=== PATIENT | female | born 1960 | race Two or more races ===

== ENCOUNTER 2018-03-15 16:18 | Emergency (ER) | payer BC ==
[~2018-03-15] VITALS: Ht 182.9 cm; Wt 130.6 kg
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
[2018-03-15] MEDS ORDERED: ACETAMINOPHEN ES 500 MG TABLET ONE (16:41)
[2018-03-15] MEDS: IV NS 0.9% 1,000 ML BAG IV ONE ×2 (16:55→17:11)
[2018-03-15] MEDS ORDERED: ACETAMINOPHEN 325 MG TABLET PO ONE (17:00)
[2018-03-15 17:09] LABS: ALBUMIN 3.8 g/dL (3.4-5.0); BILIRUBIN,TOTAL 0.3 mg/dL (0.2-1.0); CALCIUM, SERUM 8.9 mg/dL (8.5-10.1); CREATININE 0.9 mg/dL (0.6-1.3); POTASSIUM 4.5 mmol/L (3.5-5.1); TOTAL PROTEIN, SERUM 8.3 g/dL (6.4-8.2)
--- NOTE | 2018-03-15 17:11 | NUR ---
PT IS ALLERGIC TO IODINE, MADE MARTY SERVIN AWARE. WILL DO CT SCAN WITHOUT CONTRAST. IV FLUID NS 1000ML CANCELLED.
--- NOTE | 2018-03-15 17:13 | NUR ---
PT TO CTSCAN
[2018-03-15 18:02] LABS: BASOPHILS # (AUTO) 0.1 /CMM (0.0-0.2); BASOPHILS % (AUTO) 0.7 % (0.0-2.0); EOSINOPHILS % (AUTO) 2.1 % (0.0-6.0); HEMATOCRIT 39 % (33-45); HEMOGLOBIN 13.3 g/dL (11.5-14.8); LYMPHOCYTES # (AUTO) 4.1 /CMM (0.8-4.8); LYMPHOCYTES % (AUTO) 48.4 % (20.0-44.0); MEAN CORPUSCULAR HGB CONC 34 g/dl (31.0-36.0); MEAN CORPUSCULAR VOLUME 89 fL (82-100); MONOCYTES # (AUTO) 0.7 /CMM (0.1-1.30); MONOCYTES % (AUTO) 8.2 % (2.0-12.0); NEUTROPHILS # (AUTO) 3.4 /CMM (1.8-8.9); NEUTROPHILS % (AUTO) 40.6 % (43.0-81.0); PLATELET COUNT (AUTO) 360 /CMM (150-450); RDW COEFFICIENT OF VARIATION 13.5 (11.5-15.0); RED BLOOD CELL COUNT(AUTO) 4.37 MIL/uL (4.0-5.2); WHITE BLOOD COUNT (AUTO) 8.4 K/uL (4.3-11.0)
[2018-03-15 19:09] VITALS: BP 132/80
--- NOTE | 2018-03-15 19:10 | NUR ---
Patient discharged to home in stable condition. Written and verbal after care instructions given. Patient verbalizes understanding of instruction.IV removed. Catheter intact and site benign. Pressure and 4x4 applied to site. No bleeding noted. Prescription given.
== END 2018-03-15 19:11 | disposition home or self-care (01) ==
LOC: ER 16:48
DX: S30.1XXA Contusion of abdominal wall, initial encounter (principal); S20.212A Contusion of left front wall of thorax, initial encounter; S20.211A Contusion of right front wall of thorax, initial encounter; I10 Essential (primary) hypertension; E11.9 Type 2 diabetes mellitus without complications; Z90.710 Acquired absence of both cervix and uterus; Z88.0 Allergy status to penicillin; Z88.2 Allergy status to sulfonamides; Z88.8 Allergy status to other drugs, medicaments and biological substances; V43.52XA Car driver injured in collision with other type car in traffic accident, initial encounter; Y93.89 Activity, other specified; Y92.413 State road as the place of occurrence of the external cause; Y99.8 Other external cause status
CPT/HCPCS: 36415; 71250-TC; 80048-TC; 80076-TC; 84484-TC; 85025-TC; A4606; J7030; Z7610

== ENCOUNTER 2023-09-15 14:33 | Emergency (ER) | payer BC ==
[~2023-09-15] VITALS: Ht 180.3 cm; Wt 130.2 kg
[2023-09-15] MEDS ORDERED: methylPREDNISolone SOD SUCC 125 MG/2ML VIAL ONE (14:44)
[2023-09-15] MEDS ORDERED: FAMOTIDINE/PF INJ 20 MG/2 ML VIAL IV ONE ×2 (14:44→15:00)
[2023-09-15] MEDS ORDERED: EPINEPHRINE (1:1000) 1 MG/ML AMPUL ONE (14:44)
[2023-09-15] MEDS ORDERED: methylPREDNISolone SOD SUCC 125 MG/2ML VIAL IV ONE (15:00)
[2023-09-15] MEDS ORDERED: EPINEPHRINE (1:1000) 1 MG/ML AMPUL IM ONE (15:00)
[2023-09-15 15:28] LABS: BASOPHILS # (AUTO) 0.1 K/uL (0.0-0.2); BASOPHILS % (AUTO) 1.2 % (0.0-2.0); EOSINOPHILS # (AUTO) 0.6 K/uL (0.0-0.7); EOSINOPHILS % (AUTO) 6.3 % (0.0-6.0); HEMATOCRIT 42 % (33-45); HEMOGLOBIN 13.8 g/dL (11.5-14.8); LYMPHOCYTES # (AUTO) 4.4 K/uL (0.8-4.8); LYMPHOCYTES % (AUTO) 49.7 % (20.0-44.0); MEAN CORPUSCULAR HEMOGLOBIN 30 PG (26.0-33.0); MEAN CORPUSCULAR HGB CONC 33 g/dl (31.0-36.0); MEAN CORPUSCULAR VOLUME 91 fL (82-100); MONOCYTES # (AUTO) 0.7 K/uL (0.1-1.30); MONOCYTES % (AUTO) 8.2 % (2.0-12.0); NEUTROPHILS % (AUTO) 34.6 % (43.0-81.0); PLATELET COUNT (AUTO) 340 K/uL (150-450); RED BLOOD CELL COUNT(AUTO) 4.58 MIL/uL (4.0-5.2); RED CELL DISTRIBUTION WIDTH 13.4 % (11.5-15.0); WHITE BLOOD COUNT (AUTO) 8.8 K/uL (4.3-11.0)
[2023-09-15 15:47] LABS: CALCIUM, SERUM 9.1 mg/dL (8.5-10.1); CREATININE 0.9 mg/dL (0.6-1.3); POTASSIUM 4.4 mmol/L (3.5-5.1)
[2023-09-15 15:54] LABS: ALBUMIN 3.6 g/dL (3.4-5.0); BILIRUBIN,TOTAL 0.3 mg/dL (0.2-1.0); TOTAL PROTEIN, SERUM 7.8 g/dL (6.4-8.2)
[2023-09-15 16:40] LABS: ANISOCYTOSIS 1+; EOSINOPHILS % (MANUAL) 7 % (0-4); LYMPHOCYTES % (MANUAL) 55 % (16-48); MONOCYTES % (MANUAL) 3 % (0-11.0); NEUTROPHILS % (MANUAL) 35 (42-76); PLATELET ESTIMATE ADEQUATE
[2023-09-15] MEDS ORDERED: EPIN0.3P3 IM (18:38)
[2023-09-15] MEDS ORDERED: PRED50TA PO (18:38)
[2023-09-15 18:52] VITALS: BP 144/80; TEMP 98.2; O2SAT 98
== END 2023-09-15 18:52 | disposition home or self-care (01) ==
LOC: ER 14:35
DX: T78.09XA Anaphylactic reaction due to other food products, initial encounter (principal); I10 Essential (primary) hypertension; E11.9 Type 2 diabetes mellitus without complications; Z90.710 Acquired absence of both cervix and uterus; Z88.0 Allergy status to penicillin; Z88.2 Allergy status to sulfonamides; Z91.013 Allergy to seafood; Z91.018 Allergy to other foods
CPT/HCPCS: 99284; 96374; 96375; 85025; 80048; 80076; 36415; 96372; 85007; J0171; J3490; J2930